=== PATIENT | male | born 1995 | race Hispanic/Latino ===

== ENCOUNTER 2017-05-03 21:47 | Emergency (ER) | payer OTHER ==
[2017-05-03 22:12] VITALS: BP 146/99
--- NOTE | 2017-05-04 02:42 | Emergency Department Report ---
Upper Extremity - HPI Chief Complaint: Extremity Problem,Nontraumatic Stated Complaint: PAIN RT WRIST Time Seen by Provider: 05/04/17 01:47 Upper Extremity: Right Forearm, Right Wrist Severity: moderate Symptoms: Yes Pain with Movement, No Deformity, No Limited Range of Movement, No Numbness, No Weakness, No Swelling, No Bruising/Ecchymosis, No Laceration or Abrasion Other History: 22-year-old male past medical history none presents with complaint of 5 days of right thumb and wrist pain. 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 States he has no pain when he is not moving his thumb but states that when he flexes his thumb he has pain that radiates up the extensor surface of his wrist. Denies any direct trauma no recent falls denies any contact sports. ED Review of Systems ROS: Stated complaint: PAIN RT WRIST Other details as noted in HPI Constitutional: denies: chills, fever Eyes: denies: eye pain, eye discharge, vision change ENT: denies: ear pain, throat pain Respiratory: denies: cough, shortness of breath, wheezing Cardiovascular: denies: chest pain, palpitations Endocrine: no symptoms reported Gastrointestinal: denies: abdominal pain, nausea, diarrhea Genitourinary: denies: urgency, dysuria Musculoskeletal: as per HPI. denies: back pain, joint swelling, arthralgia Skin: denies: rash, lesions Neurological: denies: headache, weakness, paresthesias Psychiatric: denies: anxiety, depression Hematological/Lymphatic: denies: easy bleeding, easy bruising ED Past Medical Hx - Past Medical History Previous Medical History?: No - Surgical History Past Surgical History?: No - Social History Smoking Status: Current Every Day Smoker Substance Use Type: Marijuana - Medications Home Medications: Home Medications Medication Instructions Recorded Confirmed Last Taken Type Naproxen [Naprosyn TAB] 500 mg PO BID PRN #25 tablet 05/04/17 Unknown Rx Upper Extremity Exam - Exam General: Vital signs noted. No distress. Alert and acting appropriately. Head and Torso: No HEENT Abnormality, No Neck Tenderness, No Chest/Lungs Abnormality, No Abdominal Tenderness, No Back Tenderness Shoulder Exam: Yes Normal Range of Motion in Shoulder, No Shoulder Tenderness, No Clavicle Tenderness, No Shoulder Deformity, No AC Joint Tenderness Arm Exam: No Arm/Humerus Tenderness, No Arm Deformity Elbow: No Elbow Tenderness, No Normal Range of Motion in Elbow, No Elbow Deformity Forearm: No Forearm Tenderness, No Forearm Deformity, No Pain with Pronation, No Pain with Supination Wrist: Yes Wrist Tenderness (on deep palpation of extensor surface), Yes Normal ROM in Wrist (is flexion-extension and lateral flexion intact), No Wrist Deformity, No Snuffbox Tenderness (has no snuffbox tenderness), No Pain with Axial Thumb Compression (positive Selvin test right thumb/wrist) Hand: Yes Normal ROM in Digit(s), No Hand Tenderness, No Hand Deformity, No Digit Tenderness, No Digit(s) Deformity, No Tendon Dysfunction CMS Exam: Yes Normal Distal Pulses (distal radial and brachial pulses intact), Yes Normal Capillary Refill (distal capillary refill less than one second in all fingers), Yes Normal Distal Sensation (sensation fully intact), No Broken Skin ED Course Vital Signs 05/03/17 22:08 Temperature 98.8 F Pulse Rate 75 Respiratory 20 Rate Blood Pressure 146/99 O2 Sat by Pulse 100 Oximetry ED Medical Decision Making - Medical Decision Making A/P: De Quervain's tenosynovitis right thumb 1-has classic clinical signs including positive Selvin's test, no snuff box pain, no direct trauma given the patient's history, 2-thumb spica for support, Richard wrap wrist, naproxen 500 mg when necessary, follow-up with orthopedics 3-no neurovascular compromise right hand 4-follow-up with orthopedics Critical care attestation.: If time is entered above; I have spent that time in minutes in the direct care of this critically ill patient, excluding procedure time. ED Disposition Clinical Impression: De Quervain's tenosynovitis, right Disposition: TO HOME OR SELFCARE Is pt being admited?: No Does the pt Need Aspirin: No Condition: Stable Instructions: De Quervain Disease (ED), Tenosynovitis (ED), Tendinitis (ED) Prescriptions: Naproxen [Naprosyn TAB] 500 mg PO BID PRN #25 tablet PRN Reason: Pain Referrals: KEILA TRUJILLO MD [Staff Physician] - 3-5 Days [facility] [Provider Group] - 3-5 Days Time of Disposition: 02:48
[2017-05-04] MEDS ORDERED: TORADOL IM ONE (02:46)
== END 2017-05-04 03:04 | disposition home or self-care (01) ==
LOC: ED 21:47
DX: M65.4 Radial styloid tenosynovitis [de Quervain] (principal); F17.200 Nicotine dependence, unspecified, uncomplicated; F12.10 Cannabis abuse, uncomplicated
CPT/HCPCS: 29125; 96372; 99282; J1885